=== PATIENT | male | born 1990 | race Caucasian/White ===

== ENCOUNTER 2017-11-15 19:01 | Emergency (ER) | payer OTHER ==
[2017-11-15] MEDS ORDERED: Sodium Chloride 0.9% 10 ML Syringe FLUSH PRN (19:24)
[2017-11-15] MEDS ORDERED: Diphtheria,Pertussis(Acell),Tetanus Vaccine 0.5 ML Syringe IM ONE (19:25)
[2017-11-15] MEDS ORDERED: Iopamidol 612 MG/ML 100 ML Bottle IVPUSH ONE (19:26)
[2017-11-15 20:08] LABS: CHLORIDE,CL 106 mmol/L (98-107); SODIUM,NA 143 mmol/L (136-145)
[2017-11-15] MEDS ORDERED: Lidocaine 1% with EPINEPHrine 1:100,000 20 ML MDV INFILT ONE (20:38)
--- NOTE | 2017-11-15 21:18 | EDM.PDOC ---
ED HPI GENERAL MEDICAL PROBLEM - General Chief Complaint: Upper Extremity Injury/Pain Stated Complaint: fall, elbow and hip pain Time Seen by Provider: 11/15/17 19:16 Source of Information: Reports: Patient History Limitations: Reports: No Limitations - History of Present Illness INITIAL COMMENTS - FREE TEXT/NARRATIVE: Pt. states that he was on top of his house and fell approx. 15 feet onto the ground when he was unplugging his tape sewer vent that was filled with ice. Pt. states that he slipped off the edge of the house but was able to grab the edge, falling onto his feet and rolling onto his L side. He states that he does not think he struck his head. His only complaints are that of L elbow and L hip pain as well as some cervical spinal pain as well. Pt. states that he was ambulatory and was able to bear weight. He drove himself to the ER. Pt. states that he is not sure if his tetanus is up to date. He denies any pertinent PMH. Hip Pain Score (Numeric/FACES): 4 - Related Data Allergies Allergy/AdvReac Type Severity Reaction Status Date / Time No Known Allergies Allergy Verified 11/15/17 19:21 Home Meds: Home Meds . [No Known Home Meds] 11/15/17 [History] Past Medical History - Past Health History Medical/Surgical History: Denies Medical/Surgical History Social & Family History - Tobacco Use Smoking Status *Q: Never Smoker Review of Systems - Review of Systems Review Of Systems: See Below Constitutional: Reports: No Symptoms Eyes: Reports: No Symptoms Ears: Reports: No Symptoms Nose: Reports: No Symptoms Mouth/Throat: Reports: No Symptoms Respiratory: Reports: No Symptoms Cardiovascular: Reports: No Symptoms GI/Abdominal: Reports: No Symptoms Genitourinary: Reports: No Symptoms Musculoskeletal: Reports: Neck Pain, Leg Pain (L hip/pelvis), Other (laceration to L elbow) Skin: Reports: No Symptoms Neurological: Reports: No Symptoms Psychiatric: Reports: No Symptoms ED EXAM, GENERAL - Physical Exam Exam: See Below Exam Limited By: No Limitations General Appearance: Alert, WD/WN, No Apparent Distress Eye Exam: Bilateral Eye: EOMI, Normal Fundi, Normal Inspection, PERRL Ears: Normal External Exam, Normal Canal, Hearing Grossly Normal, Normal TMs Ear Exam: Bilateral Ear: Auricle Normal, Canal Normal, TM normal Nose: Normal Inspection, Normal Mucosa, No Blood Throat/Mouth: Normal Inspection, Normal Lips, Normal Teeth, Normal Gums, Normal Oropharynx, Normal Voice, No Airway Compromise Head: Atraumatic, Normocephalic Neck: Normal Inspection, Supple, Non-Tender, Full Range of Motion Respiratory/Chest: No Respiratory Distress, Lungs Clear, Normal Breath Sounds, No Accessory Muscle Use, Chest Non-Tender Cardiovascular: Normal Peripheral Pulses, Regular Rate, Rhythm, No Edema, No Gallop, No JVD, No Murmur, No Rub Peripheral Pulses: 2+: Radial (L), Radial (R) GI/Abdominal: Normal Bowel Sounds, Soft, Non-Tender, No Organomegaly, No Distention, No Abnormal Bruit, No Mass (Male) Exam: Deferred Rectal (Males) Exam: Deferred Back Exam: Normal Inspection, Full Range of Motion, NT Extremities: Limited Range of Motion (due to pain in pelvis/L hip), Other (3cm laceration to L elbow) Neurological: Alert, Oriented, CN II-XII Intact, Normal Cognition, Normal Gait, Normal Reflexes, No Motor/Sensory Deficits Psychiatric: Normal Affect, Normal Mood Skin Exam: Warm, Dry, Intact, Normal Color, No Rash Lymphatic: No Adenopathy Course - Vital Signs Last Recorded V/S: Last Vital Signs Temp 37.1 C 11/15/17 19:16 Pulse 107 H 11/15/17 21:25 Resp 16 11/15/17 19:16 BP 139/90 11/15/17 21:25 Pulse Ox 97 11/15/17 21:25 - Orders/Labs/Meds Orders: Active Orders 24 hr Category Date Time Status Vaccines to be Administered [RC] PER UNIT ROUTINE Care 11/15/17 19:25 Active Cervical Spine wo Cont [CT] Stat Exams 11/15/17 19:23 Taken Chest Abdomen Pelvis w Cont [CT] Stat Exams 11/15/17 19:23 Taken Elbow Min 3V Lt [CR] Stat Exams 11/15/17 19:24 Taken Head wo Cont [CT] Stat Exams 11/15/17 19:22 Taken Peripheral IV Insertion Adult [OM.PC] Routine Oth 11/15/17 19:24 Ordered Labs: Laboratory Tests 11/15/17 11/15/17 11/15/17 Range/Units 19:40 19:40 19:40 WBC 11.9 H (4.0-10.0) x10^3/uL RBC 5.19 (4.5-6.0) x10^6/uL Hgb 15.9 (14.0-18.0) g/dL Hct 44.9 (40.0-52.0) % MCV 86.5 (78.0-93.0) fL MCH 30.6 (26.0-32.0) pg MCHC 35.4 (32.0-36.0) g/dL RDW Coeff of Darrel 12.7 (10.0-15.0) % Plt Count 225 (130-400) x10^3/uL Add Manual Diff Yes Neutrophils % (Manual) 71 (50-80) % Band Neutrophils % 8 H (0-6) % Lymphocytes % (Manual) 16 L (25-50) % Monocytes % (Manual) 5 (2-11) % PT 9.7 L (9.8-11.8) SEC INR 0.9 L (2.0-3.5) Sodium 143 (136-145) mmol/L Potassium 3.4 L (3.5-5.1) mmol/L Chloride 106 (98-107) mmol/L Carbon Dioxide 25 (21-32) mmol/L BUN 13 (7-18) mg/dL Creatinine 1.0 (0.70-1.30) mg/dL Est Cr Clr Drug Dosing 142.31 mL/min Estimated GFR (MDRD) > 60 Glucose 98 (74-106) mg/dL Calcium 8.8 (8.5-10.1) mg/dL Corrected Calcium 8.80 (8.5-10.1) mg/dL Total Bilirubin 0.5 (0.2-1.0) mg/dL AST 32 (15-37) U/L ALT 56 (16-63) U/L Alkaline Phosphatase 78 (46-116) U/L Total Protein 7.7 (6.4-8.2) g/dL Albumin 4.0 (3.4-5.0) g/dL Globulin 3.7 Albumin/Globulin Ratio 1.08 Meds: Medications Discontinued Medications Generic Name Dose Route Start Last Admin Trade Name Freq PRN Reason Stop Dose Admin Hydrocodone Bitart/Acetaminophen 1 packet 11/15/17 21:25 11/15/17 21:30 Take Home: Acetam/Hydrocodon 325-5 Mg, 5 Pack PO 11/15/17 21:26 1 packet ONETIME ONE Administration Diphtheria/Tetanus/Acell Pertussis 0.5 ml 11/15/17 19:25 11/15/17 19:46 Adacel IM 11/15/17 19:26 0.5 ml .ONCE ONE Administration Iopamidol 100 ml 11/15/17 19:26 11/15/17 20:18 Isovue-300 (61%) IVPUSH 11/15/17 19:27 100 ml ONETIME ONE Administration Lidocaine/Epinephrine 20 ml 11/15/17 20:38 11/15/17 20:41 Xylocaine 1% With Epinephrine 1:100,000 INFILT 11/15/17 20:39 20 ml ONETIME ONE Administration Sodium Chloride 10 ml 11/15/17 19:24 Saline Flush FLUSH ASDIRECTED PRN Keep Vein Open Departure - Departure Time of Disposition: 21:35 Disposition: Home, Self-Care 01 Condition: Good Clinical Impression: Multiple contusions, Trauma left hip, Laceration of elbow - Discharge Information Instructions: Laceration Care, Adult, Contusion, [id number] Referrals: PCP,None [Primary Care Provider] - Forms: ED Department Discharge Additional Instructions: Keep dry for 36 hours. Keep covered if you anticipate the area getting dirty, otherwise keep open to air as much as possible. Return if redness, swelling, or discharge from the area. Ibuprofen 600mg every 6 hours. [place] 5/325mg 1 every 6 hours as needed for pain. Also return to ER if you have headache, chest pain, shortness of breath, or lightheadedness. - My Orders Last 24 Hours: My Active Orders 11/15/17 19:22 Head wo Cont [CT] Stat 11/15/17 19:23 Cervical Spine wo Cont [CT] Stat Chest Abdomen Pelvis w Cont [CT] Stat 11/15/17 19:24 Elbow Min 3V Lt [CR] Stat Peripheral IV Insertion Adult [OM.PC] Routine 11/15/17 19:25 Vaccines to be Administered [RC] PER UNIT ROUTINE - Assessment/Plan Last 24 Hours: My Active Orders 11/15/17 19:22 Head wo Cont [CT] Stat 11/15/17 19:23 Cervical Spine wo Cont [CT] Stat Chest Abdomen Pelvis w Cont [CT] Stat 11/15/17 19:24 Elbow Min 3V Lt [CR] Stat Peripheral IV Insertion Adult [OM.PC] Routine 11/15/17 19:25 Vaccines to be Administered [RC] PER UNIT ROUTINE
[2017-11-15] MEDS ORDERED: Take Home: Acetaminophen/HYDROcodone 325-5 MG, 5 Tab Pack PO ONE (21:25)
== END 2017-11-15 21:35 | disposition home or self-care (01) ==
LOC: VM.ED 19:01
DX: S51.012A Laceration without foreign body of left elbow, initial encounter (principal); S79.912A Unspecified injury of left hip, initial encounter; Z23 Encounter for immunization; W17.89XA Other fall from one level to another, initial encounter
CPT/HCPCS: 12002; 36415; 70450; 71260; 72125; 73080; 74177; 80053; 85025; 85610; 90471; 90715; 99284; A9270; Q9967